=== PATIENT | female | born 1970 ===

== ENCOUNTER → 2024-11-26 16:12 | Outpatient (CLI) | payer BC, SELFPAY | PROVIDERS: PCP Family Medicine; Referring Provider Family Medicine; Visit Provider Family Medicine | DX: F32.9 Major depressive disorder, single episode, unspecified (principal); R73.03 Prediabetes; Z13.6 Encounter for screening for cardiovascular disorders; Z78.0 Asymptomatic menopausal state | CPT/HCPCS: 36415; 84443 ==

== ENCOUNTER → 2025-04-01 15:45 | Outpatient (CLI) | payer BC, SELFPAY ==
[2025-04-01 16:56] LABS: Ur Creatinine Normal (Normal); Ur Specific Gravity Normal (Normal); Urine MDMA Negative (Negative); Urine Methamphetamines Negative (Negative); Urine THC Negative (Negative); Urine Tricyclic Antidepressant Negative (Negative); Urine pH Normal (Normal)
[2025-04-01 17:02] LABS: Hemoglobin A1C% w Est Avg Glu 5.6 % (4.0-6.0)
[2025-04-01 17:16] LABS: Cholesterol 172 mg/dL (140-199); HDL Cholesterol 63 mg/dL (40-60); Triglycerides 130 mg/dL (35-150)
== END ==
PROVIDERS: PCP Family Medicine; Referring Provider Family Medicine; Visit Provider Family Medicine
DX: R73.03 Prediabetes (principal); Z78.0 Asymptomatic menopausal state; F32.9 Major depressive disorder, single episode, unspecified; I10 Essential (primary) hypertension; F90.8 Attention-deficit hyperactivity disorder, other type; Z13.6 Encounter for screening for cardiovascular disorders
CPT/HCPCS: 36415; 80061; 80305; 83036